=== PATIENT | female | born 1980 | race Two or more races ===

== ENCOUNTER 2017-03-08 10:45 | Inpatient (IN) | payer OTHER ==
[~2017-03-08] VITALS: Ht 172.7 cm; Wt 108.9 kg
[2017-03-11] MEDS ORDERED: PRENATAL TABLE1 EAC1 PO (00:32)
== END 2017-03-13 14:49 | disposition home or self-care (01) | DRG 775 ==
LOC: OB/GYN 03-11 00:26 → LDR 03-11 00:26 → OB/GYN 03-11 15:49 → LDR 03-15 10:45
PROC: 10E0XZZ Delivery of Products of Conception, External Approach (ICD-10-PCS; principal; 2017-03-11)
PROC: 0KQM0ZZ Repair Perineum Muscle, Open Approach (ICD-10-PCS; 2017-03-11)
PROC: 4A1HXCZ Monitoring of Products of Conception, Cardiac Rate, External Approach (ICD-10-PCS; 2017-03-11)
PROC: 4A033R1 Measurement of Arterial Saturation, Peripheral, Percutaneous Approach (ICD-10-PCS; 2017-03-11)
DX: O70.1 Second degree perineal laceration during delivery (principal); Z37.0 Single live birth; Z3A.39 39 weeks gestation of pregnancy; O42.02 Full-term premature rupture of membranes, onset of labor within 24 hours of rupture

== ENCOUNTER 2017-03-08 13:07 | Outpatient (CLI) | payer OTHER | END 2017-03-08 19:54 | disposition home or self-care (01) | LOC: OBS/DEL 13:07 | DX: O47.1 False labor at or after 37 completed weeks of gestation (principal) ==